=== PATIENT | female | born 1950 | race Hispanic/Latino ===

== ENCOUNTER 2017-07-02 08:17 | Outpatient (CLI) | payer BC ==
--- NOTE | 2017-07-02 08:56 | XRay Report ---
Bilateral knees: History: Knee pain. Findings: Marked narrowing of the medial compartment of right knee and patellofemoral compartment. Sclerotic articular surfaces with peripheral osteophytes suggestive of degenerative changes. Minimal narrowing of medial compartment of left knee joint and patellofemoral compartment. Mild to moderate degenerative changes. Spur anterosuperior patella. Impression: Degenerative changes medial and patellofemoral compartment right and left knee joint , most pronounced at the right knee joint.
== END 2017-07-02 08:18 | disposition home or self-care (01) ==
LOC: SPVIMAG 08:17
PROVIDERS: ATTEND Orthopaedic Surgery Sports Medicine
DX: M17.0 Bilateral primary osteoarthritis of knee (principal); M25.862 Other specified joint disorders, left knee